=== PATIENT | female | born 1950 | race Caucasian/White ===

== ENCOUNTER 2016-07-19 23:28 | Emergency (ER) | payer OTHER ==
[~2016-07-19] VITALS: Ht 160 cm; Wt 81.0 kg
[2016-07-19 23:39] VITALS: BP 137/72; PULSE 73; RESP 16; TEMP 98; O2SAT 98
[2016-07-20 00:20] VITALS: BP 136/70; PULSE 74; RESP 18; TEMP 98; O2SAT 98
[2016-07-20] MEDS ORDERED: RAMI10CA PO (00:24)
[2016-07-20] MEDS ORDERED: CHOL1CAP2 PO (00:27)
[2016-07-20] MEDS ORDERED: METO50TA11 PO (00:27)
[2016-07-20] MEDS ORDERED: LINA290C PO (00:27)
[2016-07-20] MEDS ORDERED: HYDR12.56 PO (00:27)
[2016-07-20] MEDS ORDERED: TRAM50TA PO (00:27)
[2016-07-20] MEDS ORDERED: EVOL1.7I (00:27)
[2016-07-20 01:00] LABS: BLOOD, URINE SMALL (NEG); GLUCOSE,URINE NEG (NEG); KETONE, URINE NEG (NEG); NITRITE,URINE NEG (NEG); PH, URINE 5.5 (5.0-8.5)
[2016-07-20 01:12] LABS: COMMENT (UR) CULT NOT INDICATED; CULTURE IF INDICATED CULT NOT INDICATED; RBC, URINE 0-3 /hpf (0-3); SQUAMOUS EPITHELIAL CELL URINE 0-5 /hpf (0-5); URINE COLOR YELLOW (YELLW/STRAW); WBC, URINE 0-2 /hpf (0-5)
--- NOTE | 2016-07-20 01:31 | RADHPO ---
EXAM DATE/TIME: 07/20/2016 01:06 [facility] COMPARISON: No previous studies available for comparison. INDICATIONS : Right hip pain for 1 week with no known injury MEDICAL HISTORY : None. SURGICAL HISTORY : None. ENCOUNTER: Initial ACUITY: 1 week PAIN SCORE: 10/10 LOCATION: Right entire hip FINDINGS: 3 images of the pelvis and right hip reveal advanced osteoarthritic involving the right hip. No fract ure or dislocation. Moderate arthritis involving left hip. Degenerative changes of the SI joints. The re is cortical thickening involving the right hemipelvis consistent with Paget's disease. Soft tissue s are unremarkable. CONCLUSION: 1. Paget's disease. 2. Advanced osteoarthritis of the right hip. Olaf Bell Jr., MD on July 20, 2016 at 1:27 Board Certified Radiologist. This report was verified electronically.
--- NOTE | 2016-07-20 01:44 | RADHPO ---
EXAM DATE/TIME: 07/20/2016 01:14 [facility] COMPARISON: No previous studies available for comparison. INDICATIONS : Lower back pain for 1 week with no known injury MEDICAL HISTORY : None. SURGICAL HISTORY : None. ENCOUNTER: Initial ACUITY: 1 week PAIN SCORE: 7/10 LOCATION: Lumbar spine FINDINGS: Frontal lateral views of the lumbar spine reveal a mild scoliotic curvature with concavity towards th e patient's right centered at L2-L3. Facet arthropathy changes are seen at L4-L5 and L5-S1. Disc spac e heights and vertebral body heights are maintained. Paraspinal soft tissues are unremarkable. Cholec ystectomy clips noted. CONCLUSION: 1. L4-L5 and L5-S1 facet arthropathy changes. Otherwise, no acute abnormality. Olaf Bell Jr., MD on July 20, 2016 at 1:42 Board Certified Radiologist. This report was verified electronically.
[2016-07-20] MEDS ORDERED: PERC5TAB12 PO (02:23)
[2016-07-20] MEDS ORDERED: ROBA750T PO (02:23)
--- NOTE | 2016-07-20 02:25 | PD ---
HPI Chief Complaint: Musculoskeletal Complaint Time Seen by Provider: 00:52 Travel History International Travel<30 days: No Contact w/Intl Traveler<30days: No Traveled to known affect area: No History of Present Illness HPI 65-year-old female presents to the emergency room chronic low back pain and right hip pain. Patient recently moved to the area from [place] 4 months ago and has not yet established with a primary care provider or pain management provider. Patient has history of arthritis and Paget's disease. Patient also states that she was recently started on new cholesterol medication and any time she takes Repatha her symptoms seem to exacerbate. Patient denies fever chills nausea vomiting chest pain shortness of breath abdominal pain or flank pain. Patient denies any lower extremity pain or swelling. Patient denies any numbness tingling or weakness in the lower extremities. Patient rates pain as 8 /10 in intensity. Patient states she has been prescribed tramadol which provide some relief however also using ice packs and moist heat has not provided adequate relief at this time. Patient denies any bladder or bowel dysfunction and no saddle anesthesia. Patient is unable to identify specific exacerbating or alleviating factors although does state that her activity has been atypical as they recently moved here and she has been moving items into her to home. Patient's primary care provider is still located in [place] and she has not yet established with any local providers. Patient denies other concerns or complaints. PFSH Past Medical History Narrative Medical Arthritis, Paget's disease, dyslipidemia, diabetes; cholecystectomy hysterectomy ; no tobacco use; nursing notes reviewed Arthritis: Yes Cardiovascular Problems: Yes High Cholesterol: Yes Diabetes: Yes Patient Takes Glucophage: No Diminished Hearing: No Hypertension: Yes Musculoskeletal: Yes Tetanus Vaccination: < 5 Years Influenza Vaccination: Yes Menopausal: Yes Past Surgical History Abdominal Surgery: Yes Cholecystectomy: Yes Gynecologic Surgery: Yes Hysterectomy: Yes Social History Alcohol Use: No Tobacco Use: No Substance Use: No Allergies-Medications (Allergen,Severity, Reaction): Coded Allergies: Codeine (Verified Allergy, Intermediate, Nausea/Vomiting, 07/20/16) Penicillin (Verified Allergy, Intermediate, rash, 07/20/16) Reported Meds & Prescriptions Reported Meds & Active Scripts Active Percocet (Oxycodone-Acetaminophen) 5-325 mg Tab 1 Tab PO Q6H PRN Robaxin (Methocarbamol) 750 Mg Tab 750 Mg PO Q6HR Reported Repatha PF Inj (Evolocumab PF Inj) 140 Mg/Ml Syr Hydrochlorothiazide 12.5 Mg Tab 12.5 Mg PO DAILY Metoprolol Succinate ER 24 HR (Metoprolol Succinate) 50 Mg Tab 50 Mg PO DAILY Tramadol (Tramadol HCl) 50 Mg Tab 50 Mg PO Q6H PRN Fenofibric Acid Dr (Choline Fenofibrate DR) 135 mg Capdr 135 Mg PO DAILY Linzess (Linaclotide) 290 Mcg Cap 290 Mcg PO DAILY Ramipril 10 Mg Cap 10 Mg PO DAILY Review of Systems Except as stated in HPI: all other systems reviewed are Neg General / Constitutional: No: Fever, Chills HENT: No: Congestion Cardiovascular: No: Chest Pain or Discomfort Respiratory: No: Shortness of Breath Gastrointestinal: No: Abdominal Pain Genitourinary: No: Flank Pain Musculoskeletal: Positive: Myalgias, Arthralgias, Pain (back pain r hip pain) Skin: No Rash Neurologic: No: Weakness Psychiatric: No: Anxiety Hematologic/Lymphatic: No: Lymph Node Enlargement Physical Exam Narrative GENERAL: Well-developed well-nourished female in no acute distress no respiratory distress SKIN: Warm and dry. HEAD: Normocephalic. EYES: No scleral icterus. No injection or drainage. NECK: Supple, trachea midline. No JVD or lymphadenopathy. CARDIOVASCULAR: Regular rate and rhythm without murmurs, gallops, or rubs. RESPIRATORY: Breath sounds equal bilaterally. No accessory muscle use. GASTROINTESTINAL: Abdomen soft, non-tender, nondistended. MUSCULOSKELETAL: No cyanosis, or edema. Patient has right hip discomfort with internal rotation but not with external rotation abduction or abduction patient is able to perform hip flexion but does note that hip extension provide some increased discomfort distally the limb is neurovascularly tendon intact with 2+ dorsalis pedis pulse to palpation. BACK: Nontender without obvious deformity except for reproducible tenderness over the right SI joint and lower lumbar spine. No pelvic instability or tenderness to palpation. No CVA tenderness. Data Data Last Documented VS Vital Signs Date Time Temp Pulse Resp B/P Pulse Ox O2 Delivery O2 Flow Rate FiO2 07/20/16 02:39 76 18 97 07/20/16 02:27 128/78 Room Air 07/20/16 00:20 98.0 Orders Spine, Lumbar - Ltd (Ap & Lat) (07/20/16 ) Hip, Uni(Ap&Lat) W Ap Pelvis (07/20/16 ) Urinalysis - C+S If Indicated (07/20/16 00:52) Ketorolac Inj (Toradol Inj) (07/20/16 02:30) Orphenadrine Inj (Norflex Inj) (07/20/16 02:30) Labs Laboratory Tests Test 07/20/16 00:50 Urine Color YELLOW Urine Turbidity CLEAR Urine pH 5.5 Urine Specific [place] 1.020 Urine Protein NEG mg/dL Urine Glucose (UA) NEG mg/dL Urine Ketones NEG mg/dL Urine Occult Blood SMALL Urine Nitrite NEG Urine Bilirubin NEG Urine Leukocyte Esterase NEG Urine RBC 0-3 /hpf Urine WBC 0-2 /hpf Urine Squamous Epithelial 0-5 /hpf Cells Urine Bacteria NONE /hpf Microscopic Urinalysis Comment CULT NOT INDICATED MDM Medical Decision Making Medical Screen Exam Complete: Yes Emergency Medical Condition: Yes Medical Record Reviewed: Yes Differential Diagnosis Sciatica, HNP, radiculopathy, piriformis syndrome, arthritis, tendinitis; no findings for cauda equina syndrome or septic arthritis Narrative Course Urine specimen collected and sent for resulting Urinalysis is within normal range Patient administered an injection of Toradol 60 mg IM along with Norflex 60 mg IM Repeat assessment of patient's pain decreased to 4/10 in intensity. Patient given prescription for Robaxin and encouraged to use as tolerated over-the- counter ibuprofen along with her chronic medication tramadol also given a limited supply of Percocet which she has taken the past without difficulty and has been educated that she should not take the 2 medications together. Patient encouraged to establish and follow up with primary care provider and as needed orthopedist. Diagnosis Primary Impression: Lumbar disc disease with radiculopathy Additional Impressions: Hip pain, right Chronic hip pain Qualified Code: M25.551 - Chronic hip pain, right Paget disease of bone Referrals: Orthopedist call for appointment psychotherapist orthopedist Dr Connor Primary Care Physician [address] Caballero Patient Instructions: General Instructions Additional Instructions: Continue to apply moist heat and use as needed ice packs to areas affected by inflammation Follow-up with primary care provider and orthopedist call to make appointment Return to the emergency department for any concerns or change in condition May take Percocet medication as prescribed as needed for pain greater than 7/10 in intensity do not take this medication if taking tramadol/Ultram May take muscle relaxant Robaxin as prescribed as needed for muscle spasm use with caution if taking with tramadol/Ultram or Percocet/oxycodone as medications baby active Be aware that narcotic medications may impair judgment, delay reaction time, increased risk for fall, cause constipation Increase fluid hydration Med/Other Pt SpecificInfo: Prescription(s) given Scripts Oxycodone-Acetaminophen (Percocet)5-325 mg Tab1 Tab PO Q6H PRN (PAIN) #6 TAB Ref 0 Prov:Tracie Bach MD 07/20/16 Methocarbamol (Robaxin)750 Mg [id number] Mg PO Q6HR #12 TAB Ref 0 Prov:Tracie Bach MD 07/20/16 Disposition: 01 DISCHARGE HOME Condition: Stable Tracie Bach MD Jul 20, 2016 02:25
[2016-07-20 02:27] VITALS: BP 128/78; PULSE 76; RESP 18; O2SAT 98
[2016-07-20] MEDS ORDERED: KETOROLAC TROMETHAMINE 60 MG/2 ML (IM) VIAL IM ONE (02:30)
[2016-07-20] MEDS ORDERED: ORPHENADRINE INJ 60 MG/2 ML AMP IM ONE (02:30)
== END 2016-07-20 02:40 | disposition home or self-care (01) ==
LOC: PHED 23:28 → PHEFT 07-20 02:40
DX: M25.551 Pain in right hip (principal); M51.16 Intervertebral disc disorders with radiculopathy, lumbar region; E11.9 Type 2 diabetes mellitus without complications; M88.9 Osteitis deformans of unspecified bone; E78.00 Pure hypercholesterolemia, unspecified; I10 Essential (primary) hypertension
CPT/HCPCS: 72100; 73502; 81001; 96372; 99283; J1885; J2360